=== PATIENT | male | born 1965 | race Caucasian/White ===

== ENCOUNTER 2025-10-05 09:39 | Emergency (ER) | payer BC, SELFPAY ==
[2025-10-05 09:44] VITALS: BP 202/114; PULSE 91; O2SAT 99
[2025-10-05 09:48] VITALS: BP 202/114; PULSE 85; RESP 18; TEMP 36.9; O2SAT 98; BMI 27.3
--- NOTE | 2025-10-05 09:48 | ECG_ITS ---
APPROVED REPORT Exam: Resting ECG HR:86 bpm ECG Measurements Heart Rate 86 AXES RI 154 P 60 QRSd 91 QRS -9 QT 361 T 42 QTc 404 Conclusion SINUS RHYTHM NORMAL ECG UNCONFIRMED REPORT Normal sinus rhythm. No STEMI Electronically signed by : JENNY RUIZ, 10/05/2025 15:25:02
--- OUTSIDE RECORDS SUMMARY | 2025-10-05 09:50 | XMS_ITS | Encounter Summary ---
Author Organization Healthcare Address [address] [place] [address] Care Team Providers Care Second Worker Name Role Phone Unavailable Primary Care Provider Unavailabl e Encounter Details Date Type Department Care Team (Late st Contact Info) Description 06/10/2023 Orders Only [facility] [address] [place] [id number] Carmelita Chao MD [address] [address] Social History Tobacco Use Types Packs/Day Years Used Date Smoking Tobacco: Never Assessed Sex and Gender Information Value Date Recorded Sex Assigned at Not on file Legal Sex Male 8:22 AM EDT Gender Identity Not on file Sexual Orientation Not on file documented as of this encounter Plan of Treatment Not on file documented as of this encounter Procedures Procedure Name Priority Date/Time Associated Diagnosis Comments CBC WITH AUTO DIFFERENTIAL Routine 06/10/2023 4:19 PM EDT documented in this encounter Results * (ABNORMAL) CBC and Differential (06/10/2023 4:19 PM EDT) External WBC 12.8(H) 3.8 - 10.8 10*3/uL 06/10/2023 4:35 PM EDT [facility] External Red Blood Cell (RBC) 5.68 4.20 - 5.80 10*6/uL 06/10/2023 4:35 PM EDT [facility] External Hemoglobin 17.2 14.0 - 18.0 g/dL 06/10/2023 4:35 PM EDT [facility] External Hematocrit 49.9 40.0 - 52.0 % 06/10/2023 4:35 PM EDT [facility] External MCV 88 80 - 100 fL 06/10/2023 4:35 PM EDT [facility] External MCH 30 26 - 35 pg 06/10/2023 4:35 PM EDT [facility] External MCHC 35 32 - 36 g/dL 06/10/2023 4:35 PM EDT [facility] External RDW 12.8 11.0 - 15.0 % 06/10/2023 4:35 PM EDT [facility] External Mean Platelet Volume 7.3 6.2 - 10.5 fL 06/10/2023 4:35 PM EDT [facility] External Platelets 332 130 - 400 10*3/uL 06/10/2023 4:35 PM EDT [facility] External Neutrophil# 8.8(H) 1.6 - 8.4 10*3/uL 06/10/2023 4:35 PM EDT [facility] External Lymphocyte# 2.8 0.4 - 5.1 10*3/uL 06/10/2023 4:35 PM EDT [facility] External Absolute Monocyte (Abs Lown[place]) 0.7 0.0 - 1.2 10*3/uL 06/10/2023 4:35 PM EDT [facility] External Eosinophils# 0.2 0.0 - 0.8 10*3/uL 06/10/2023 4:35 PM EDT [facility] External Baso# 0.2 0.0 - 0.3 10*3/uL 06/10/2023 4:35 PM EDT [facility] External Neutrophils % 68.7 42.0 - 78.0 % 06/10/2023 4:35 PM EDT [facility] External Lymphocyte % 21.8 11.0 - 47.0 % 06/10/2023 4:35 PM EDT [facility] External Monocyte % 5.7 0.0 - 11.0 % 06/10/2023 4:35 PM EDT [facility] External Eosinophil% 1.9 0.0 - 7.0 % 06/10/2023 4:35 PM EDT [facility] External Basophil % 1.9 0.0 - 3.0 % 06/10/2023 4:35 PM EDT [facility] External Nucleated RBC%-Auto 0.1 0.0 - 0.9 % 06/10/2023 4:35 PM EDT [facility] External Nucleated RBC Absolute 0.01 Not Estab. 10*3/uL 06/10/2023 4:35 PM EDT [facility] 06/10/2023 4:19 PM EDT 06/10/2023 4:30 PM EDT us Carmelita Chao MD LAB BLOOD ORDERABLES Final Re sult [facility] [address] [place] [address], documented in this encounter Visit Diagnoses Not on filedocumented in this encounter
--- OUTSIDE RECORDS SUMMARY | 2025-10-05 09:50 | XMS_ITS | Encounter Summary ---
Author Organization Healthcare Address [address] [place] [address] Care Team Providers Care Mails Supervisor Name Role Phone Unavailable Primary Care Provider Unavailabl e Encounter Details Date Type Department Care Team (Late st Contact Info) Description 06/28/2023 Orders Only [facility] [address] [place] [address] Carmelita Chao MD [address] [address] Social History Tobacco Use Types [...] Procedure Name Priority Date/Time Associated Diagnosis Comments ERYTHROPOIETIN (SO) Routine 06/28/2023 1:10 PM EDT documented in this encounter Results * Erythropoietin (06/28/2023 1:10 PM EDT) External Erythropoietin 4.3 2.6 - 18.5 mIU/mL 06/30/2023 3:21 PM EDT [facility] 06/28/2023 1:10 PM EDT 06/28/2023 8:08 PM EDT us Carmelita Chao MD LAB BLOOD ORDERABLES Final Re sult [facility] [address] [place] [address], documented in this encounter Visit Diagnoses Not on filedocumented in this encounter
--- OUTSIDE RECORDS SUMMARY | 2025-10-05 09:50 | XMS_ITS | Clinical Summary ---
Author Organization [facility] Address [address] [place] [address] Care Team Providers Care Gas Fitter Helper Name Role Phone Unavailable Primary Care Provider Unavailabl e Social History Tobacco Use Types Packs/Day Years Used Date Smoking Tobacco: Never Assessed Sex and Gender Information Value Date Recorded Sex Assigned at Not on file Legal Sex Male 8:22 AM EDT Gender Identity Not on file Sexual Orientation Not on file Plan of Treatment Health Maintenance Due Date Last Done Comments [facility]Y-Depression Screening 1965 [facility]-/Child/Adol SDOH Screenings 1965 UKY- SDOH Screenings 1983 UKY-Adult SDOH Screenings 1983 UKY-DTaP,Tdap,and Td Vaccine s (1 - Tdap) 1984 UKY-Hepatitis B Vaccines (1 of 3 - 19+ 3-dose series) 1984 CT Colonography 2010 Colonoscopy 2010 FIT-DNA 2010 FIT 2010 FOBT 2010 Sigmoidoscopy 2010 UKY-Colorectal Cancer Screening 2010 UKY-Pneumococcal Vaccine: 50 + Years (1 of 1 - PCV) 2015 UKY-Zoster Vaccines (1 of 2) 2015 JFF-IHGSL-64 Vaccine (1 - 20 25-26 season) 2025 UKY-Influenza Vaccine (#1) 2025 HPV Vaccines Aged Out No longer eligi ble based on patient's age to complete this topic UKY-HIB Vaccines Aged Out No longer e ligible based on patient's age to complete this topic UKY-Hepatitis A Vaccines Aged Out No longer eligible based on patient's age to complete this topic UKY-IPV Vaccines Aged Out No longer e ligible based on patient's age to complete this topic UKY-Rotavirus Vaccines Aged Out No lo nger eligible based on patient's age to complete this topic Insurance ANTH
--- NOTE | 2025-10-05 09:57 | XR_ITS ---
FINAL REPORT CLINICAL HISTORY: Chest pain, HTN x 1 week FINDINGS: A portable view of the chest was obtained. Cardiac and mediastinal silhouettes are within normal limits. The lungs are clear. There is no pleural effusion or pneumothorax. IMPRESSION: No acute process on this portable exam. Reviewed, Interpreted and Dictated by Sarah Harvey MD Transcribed by Mikki Katz Authenticated and [facility]
--- NOTE | 2025-10-05 09:58 | ED_ITS ---
Discharge Plan Disposition Patient Disposition: Home, Self-Care Referrals Follow up/Referrals: Dillon Alston MD [Staff Physician, Cardiology] - See instructions Provider,MD Sarah [Primary Care Provider, Medical] - See instructions Activity Restrictions/Add. Instructions Additional Instructions/Restrictions: Your blood pressure is elevated today and I do encourage you to follow-up with your primary care doctor this week or early next week to address this as you will likely need to be on additional medication to help control your blood pressure. Over the weekend, continue to monitor your blood pressure closely and keep a log of your blood pressure. Continue take your lisinopril as prescribed. If you develop any new or worsening symptoms, such as worsening chest pain, shortness of breath, blurry vision, abdominal pain, or if you become concerned for your help for any reason, return to the emergency department for evaluation Clinical Impressions Clinical Impression: Hypertension Print Language Print Language: Japanese Discharge ED Provider: Irineo De La Cruz Adult HPI General Chief complaint: Dizziness Stated complaint: High BP Time Seen by Provider: 10/05/25 09:46 Mode of Arrival: Ambulatory Source of Information: Patient Description of Symptoms (Recalled from ER Triage Doc. by RN): Pt presents for evaluation of high blood pressure x 1 week. Pt states his BP has been 200/100. Pt is compliant with his medications. States he takes lisinopril 40mg at night. Pt states he has a slight headache and slight dizziness. History of Present Illness HPI narrative: Johanny Lau is a 59y male with a history of hypertension on lisinopril 40 mg daily, tobacco use, diabetes mellitus who presents to the emergency department for complaints of high blood pressure. Patient states that on Wednesday of this past week (5 days ago), he had an episode of chest pain and pain in his left arm but states that it resolved. He started taking his blood pressure at that time and noted that it was elevated. He states that normally it is in the 130s systolic. He states that over the past week it has been more elevated than normal and last night was over 200 systolic. He states that he also feels like he had a short temper last night for an unknown reason. He states that his told him she is going to bed and he snapped and had to go for a drive for an hour. He states that last night he also had some pain down his left arm but denied any chest pain. He denies any current chest pain, shortness of breath, headache, blurry vision, abdominal pain or vomiting. He states that he has not seen his primary care doctor this week for these issues. Patient does not describe dizziness to me but states that he feels like he is in a brain fog. Related Data Allergies Allergy/AdvReac Type Severity Reaction Status Date / Time Penicillins Allergy Anaphylaxis Verified 10/05/25 10:41 [facility] Disclaimer: The information contained in this section may have been updated after the patient was seen, as this information can be updated by other users. Social History Smoking Status: Current every day smoker alcohol intake: never current occupational status: employed Travel in the last 8 weeks?: None ROS Obtained: Yes Systems reviewed as appropriate & no additional complaints except as documented Physical Exam General General appearance: alert and in no apparent distress Head Head exam: atraumatic Eye Eye exam: Present normal appearance ENT ENT exam: Present normal external ear exam Neck Neck exam: Present full ROM Chest Chest inspection: Present symmetric chest wall rise Respiratory Respiratory exam: Present normal lung sounds bilaterally; Absent respiratory distress Cardiovascular Cardiovascular exam: Present regular rate and normal rhythm Abdominal Exam Abdominal exam: Present soft; Absent tenderness or guarding exam: Present deferred Extremities Exam Extremities exam: Present normal inspection Back Exam Back exam: Present normal inspection Neurological Exam Neurological exam: Present alert and oriented X3 Psychiatric Psychiatric exam: Present normal affect Skin Skin exam: Present warm and dry Medical Decision Making Medical Records Screening: Per USPSTF and CDC recommendations, given the prevalence of disease in our region, it is our hospital?s policy to screen for HIV and viral Hepatitis for all patients aged 18 and over and those with ongoing risk factors. Raymundo Inquiry Pt receiving controlled substance: No Vital Signs: 10/05/25 09:44 10/05/25 09:48 10/05/25 10:35 Temperature 98.5 F Temperature Source Oral Pulse Rate 91 H 75 Pulse Rate [Right] 85 Respiratory Rate 18 18 Blood Pressure 202/114 H 176/99 H Blood Pressure [Right Arm] 202/114 H Blood Pressure Mean [Right Arm] 143 Blood Pressure Source [Right Arm] Automatic Cuff Blood Pressure Position [Right Arm] Sitting 02 Sat by Pulse Oximetry 99 98 98 Oxygen Delivery Method Room Air Room Air Room Air Lab Data Lab Results 10/05/25 09:50: WBC 13.1 H, RBC 5.88, Hgb 18.1 H, Hct 52.9 H, MCV 90.0, MCH 30.8, MCHC 34.2, RDW 12.2, Plt Count 317, MPV 9.4, Neut % (Auto) 78.1, Lymph % (Auto) 14.8, Cotton % (Auto) 5.4, Eos % (Auto) 1.1, Baso % (Auto) 0.4, Neut # (Auto) 10.2 H, Lymph # (Auto) 1.9, Cotton # (Auto) 0.7, Eos # (Auto) 0.2, Baso # (Auto) 0.1, Sodium 134 L, Potassium 3.9, Chloride 100, Carbon Dioxide 26, Anion Gap 11.9, BUN 11, Creatinine 0.70, Estimated Creat Clear 135, Estimated GFR 115, Est GFR ( Amer) 140, Glucose 247 H, Calcium 9.4, Total Bilirubin 0.9, AST 24, ALT 16, Alkaline Phosphatase 88, Troponin I < 0.01, NT-Pro-B Natriuret Pep 185 H, Total Protein 8.4 H, Albumin 4.8, Globulin 3.6 H, Albumin/Globulin Ratio 1.3 10/05/25 09:50 10/05/25 09:50 Orders (Tests/Meds): ORDERS Category Date Time Status CXR --portable [XR chest portable] Stat Exams 10/05/25 09:57 Completed BNP [NT Pro Brain Natriuretic Pep.] Stat Lab 10/05/25 09:50 Completed CBC w/Auto Diff [Complete Blood Count Auto Diff] Stat Lab 10/05/25 09:50 Completed CMP [Comprehensive Metabolic Panel] Stat Lab 10/05/25 09:50 Completed Troponin I Stat Lab 10/05/25 09:50 Completed ECG Data Tracing #1: I reviewed this ECG and interpreted as documented below: NSR. No ST elevation or depression. QTc normal at 404 HEART Score History (anamnesis): Slightly suspicious ECG: Normal Age: 45-65 years Risk factors: 1-2 risk factors Troponin: </= normal limit HEART Score: 2 Medical Decision Narrative: Johanny Lau is a 59y male with a history of hypertension on lisinopril 40 mg daily, tobacco use who presents to the emergency department for complaints of high blood pressure. Patient states that on Wednesday of this past week (5 days ago), he had an episode of chest pain and pain in his left arm but states that it resolved. He started taking his blood pressure at that time and noted that it was elevated. He states that normally it is in the 130s systolic. He states that over the past week it has been more elevated than normal and last night was over 200 systolic. He states that he also feels like he had a short temper last night for an unknown reason. He states that his told him she is going to bed and he snapped and had to go for a drive for an hour. He states that last night he also had some pain down his left arm but denied any chest pain. He denies any current chest pain, shortness of breath, headache, blurry vision, abdominal pain or vomiting. He states that he has not seen his primary care doctor this week for these issues. Patient does not describe dizziness to me but states that he feels like he is in a brain fog. On arrival, patient is hypertensive with blood pressure 202/114, heart rate within normal image, afebrile, maintaining appropriate oxygen saturation on room air. Physical exam, stated above, revealed nontoxic-appearing male in no distress. Cardiopulmonary exam without wheezing, rales or rhonchi. No murmurs or rubs. No focal neurological deficits. Abdomen is soft, nontender nondistended. Differential diagnosis includes, but is not limited to: Uncontrolled hypertension, hypertensive emergency, ACS. Low concern for intracranial pathology given patient's lack of headache or vision changes. Will obtain hematologic labs, troponin, EKG and chest x-ray. EKG was interpreted by me personally. Normal sinus rhythm. No ST elevation or depression. No T wave inversions. QTc normal at 404 Laboratory studies show leukocytosis without left shift, mildly elevated hemoglobin of 18.1, hematocrit 52.9. Mild hyponatremia 134 but electrolytes otherwise unremarkable nonactionable. No ABHIJIT. Glucose is mildly elevated at 247. Liver enzymes bilirubin within normal limits. Troponin less than 0.01. NT proBNP very mildly elevated at 185. Chest x-ray interpreted by me personally. No focal consolidation, no pneumothorax, no widened mediastinum, no enlargement of the cardiac silhouette. Unremarkable chest x-ray. See radiology report for details. On reassessment, patient's repeat blood pressure is 176/99. He has remained hemodynamically stable without any additional symptoms. I do feel that he is appropriate for discharge at this time with close follow with his primary care doctor, whom I encouraged him to call today to schedule an appointment. Will also refer him to cardiology given patient's intermittent chest pain/arm pain in the setting of tobacco use and blood pressure elevation. Heart score is 2. All questions were answered. Strict return precautions were given. He demonstrated understanding and was in agreement this plan. He was then discharged from the emergency department in stable condition. Critical Care Critical Care Time Critical Care Time: No
[2025-10-05 10:03] LABS: Hematocrit 52.9 % (42.0-52.0); Immature Granulocytes % 0.2 %; Mean Corpuscular HGB Conc 34.2 g/dL (31.8-35.4); Mean Corpuscular Hemoglobin 30.8 pg (27.0-31.2); Mean Corpuscular Volume 90.0 fl (80-94); Nucleated Red Blood Cells % 0 %; Platelet Count 317 K/mm3 (142-424); Red Blood Count 5.88 M/mm3 (4.60-6.20); Red Cell Distribution Width-SD 40.6 fL; White Blood Count 13.1 K/mm3 (4.8-10.8)
[2025-10-05 10:08] LABS: Alanine Aminotransferase 16 U/L (12-78); Albumin Level 4.8 g/dl (3.5-5.0); Albumin/Globulin Ratio 1.3 (1.1-1.8); Alkaline Phosphatase 88 U/L (38-126); Anion Gap 11.9 mEq/L (5-15); Aspartate Amino Transferase 24 U/L (17-59); Bilirubin,Total 0.9 mg/dl (0.2-1.3); Blood Urea Nitrogen 11 mg/dl (9-20); Calcium 9.4 mg/dl (8.4-10.2); Carbon Dioxide 26 mmol/L (22.0-30.0); Chloride 100 mmol/L (98-107); Creatinine Clearance Estimated 135 mL/min (50-200); Creatinine,Serum 0.70 mg/dl (0.66-1.25); Estimated Glomerular Filt Rate 115 ml/min (>60); GFR (African American) 140 ML/MIN (>60); Globulin 3.6 g/dL (1.3-3.2); Glucose 247 mg/dl (74-100); Potassium 3.9 mmoL/L (3.5-5.1); Sodium 134 mmol/L (136-145); Total Protein,Serum 8.4 g/dl (6.3-8.2)
--- NOTE | 2025-10-05 10:09 | PC.NURSE ---
portable chest xray at bedside
[2025-10-05 10:10] LABS: Hemoglobin 18.1 g/dL (14.1-18.0)
[2025-10-05 10:20] LABS: NT Pro Brain Natriuretic Pep. 185 pg/mL (0-125)
[2025-10-05 10:26] LABS: Troponin I < 0.01 ng/ml (0.00-0.034)
[2025-10-05 10:35] VITALS: BP 176/99; PULSE 75; RESP 18; O2SAT 98
[2025-10-05 11:24] VITALS: BP 176/99; PULSE 75; RESP 16; TEMP 36.9; O2SAT 98
== END 2025-10-05 11:25 | disposition home or self-care (01) ==
PROVIDERS: Emergency Provider Student in an Organized Health Care Education/Training Program
DX: I10 Essential (primary) hypertension (principal); E11.65 Type 2 diabetes mellitus with hyperglycemia; E87.1 Hypo-osmolality and hyponatremia; D72.829 Elevated white blood cell count, unspecified; F17.200 Nicotine dependence, unspecified, uncomplicated; Z79.899 Other long term (current) drug therapy
CPT/HCPCS: 71045; 80053; 83880; 84484; 85025; 93005; 99284

== ENCOUNTER 2025-10-30 14:38 | Outpatient (CLI) | payer BC, SELFPAY ==
--- OUTSIDE RECORDS SUMMARY | 2025-10-30 14:41 | XMS_ITS | Encounter Summary ---
Author Organization Healthcare Address [address] [place] [address] Care Team Providers Care Storage Garage Manager Name Role Phone Unavailable Primary Care Provider Unavailabl e Encounter Details Date Type Department Care Team (Late st Contact Info) Description 06/10/2023 Orders Only [facility] [address] [place] [phone] Carmelita Chao MD [address] [address] Social History Tobacco Use Types [...] - 10.8 10*3/uL 06/10/2023 4:35 PM EDT [facility] External Red Blood Cell (RBC) 5.68 4.20 - 5.80 10*6/uL 06/10/2023 4:35 PM EDT [facility] External Hemoglobin 17.2 14.0 - 18.0 g/dL 06/10/2023 4:35 PM EDT [facility] External Hematocrit 49.9 40.0 - 52.0 % 06/10/2023 4:35 PM EDT [facility] External MCV 88 80 - 100 fL 06/10/2023 4:35 PM EDT [facility] External MCH 30 26 - 35 pg 06/10/2023 4:35 PM EDT [facility] External MCHC 35 32 - 36 g/dL 06/10/2023 4:35 PM EDT [facility] External RDW 12.8 11.0 - 15.0 % 06/10/2023 4:35 PM EDT [facility] External Mean Platelet Volume 7.3 6.2 - 10.5 fL 06/10/2023 4:35 PM EDT [facility] External Platelets 332 130 - 400 10*3/uL 06/10/2023 4:35 PM EDT [facility] External Neutrophil# 8.8(H) 1.6 - 8.4 10*3/uL 06/10/2023 4:35 PM EDT [facility] External Lymphocyte# 2.8 0.4 - 5.1 10*3/uL 06/10/2023 4:35 PM EDT [facility] External Absolute Monocyte (Abs Menard) 0.7 0.0 - 1.2 10*3/uL 06/10/2023 4:35 PM EDT [facility] External Eosinophils# 0.2 0.0 - 0.8 10*3/uL 06/10/2023 4:35 PM EDT [facility] External Baso# 0.2 0.0 - 0.3 10*3/uL 06/10/2023 4:35 PM EDT [facility] External Neutrophils % 68.7 42.0 - 78.0 % 06/10/2023 4:35 PM EDT [facility] External Lymphocyte % 21.8 11.0 - 47.0 % 06/10/2023 4:35 PM EDT [facility] External Monocyte % 5.7 0.0 - 11.0 % 06/10/2023 4:35 PM EDT [facility] External Eosinophil% 1.9 0.0 - 7.0 % 06/10/2023 4:35 PM EDT [facility] External Basophil % 1.9 0.0 - 3.0 % 06/10/2023 4:35 PM EDT [facility] External Nucleated RBC%-Auto 0.1 0.0 - 0.9 % 06/10/2023 4:35 PM EDT [facility] External Nucleated RBC Absolute 0.01 Not Estab. 10*3/uL 06/10/2023 4:35 PM EDT [facility] 06/10/2023 4:19 PM EDT 06/10/2023 4:30 PM EDT us Carmelita Chao MD LAB BLOOD ORDERABLES Final Re sult [facility] [address] [place] [address], documented in this encounter Visit Diagnoses Not on filedocumented in this encounter
--- OUTSIDE RECORDS SUMMARY | 2025-10-30 14:41 | XMS_ITS | Encounter Summary ---
Author Organization Healthcare Address [address] [place] [address] Care Team Providers Care Burlap Worker Name Role Phone Unavailable Primary Care Provider Unavailabl e Encounter Details Date Type Department Care Team (Late st Contact Info) Description 06/28/2023 Orders Only [facility] [address] [place] [address] Carmelita Chao MD [address] [address] Social History Tobacco Use Types [...] Associated Diagnosis Comments ERYTHROPOIETIN (SO) Routine 06/28/2023 1 :10 PM EDT documented in this encounter Results * Erythropoietin (06/28/2023 1:10 PM EDT) External Erythropoietin 4.3 2.6 - 18.5 mIU/mL 06/30/2023 3:21 PM EDT [facility] 06/28/2023 1:10 PM EDT 06/28/2023 8:08 PM EDT us Carmelita Chao MD LAB BLOOD ORDERABLES Final Re sult [facility] [address] [place] [address], documented in this encounter Visit Diagnoses Not on filedocumented in this encounter
--- OUTSIDE RECORDS SUMMARY | 2025-10-30 14:41 | XMS_ITS | Clinical Summary ---
Author Organization [facility] Address [address] [place] [address] Care Team Providers Care Military Technology Manager Name Role Phone Unavailable Primary Care [...] 2015 UKY-Zoster Vaccines (1 of 2) 2015 [id number] Vaccine (1 - 20 25-26 season) 2025 UKY-Influenza Vaccine (#1) 2025 HPV Vaccines (No Doses Required) Completed UKY-HIB Vaccines Aged Out No longer e [...] patient's age to complete this topic Insurance ANDRY
--- NOTE | 2025-10-30 15:00 | CA_ITS ---
APPROVED REPORT EXAM: Comprehensive 2D, Doppler, and color-flow Echocardiogram Machine Packager: Sadie Meng, RT(R) Ht: 5 ft 9 in Wt: 191lbs BSA: 2.03 BP: 180/93 mmHg Indications: chest pain, smoker, HTN, DM, abn EKG 2D Dimensions LVEF (Garcia's) 59.00 % M: 52 - 72 LV Volume 117.10 mL M: 62 - 150 LV Volume Index 57.7 mL/m2 M: 34 - 74 LA Volume 43.10 mL LA Volume Index 21.23 mL/m2 (M/F) 16-34 EF AP4 62.80 % EF AP2 54.0 % EF BP 59.0 % GL Strain -17.3 % M-Mode Dimensions RVDd 3.65 cm (0.9-2.6) LA Diam 4.35 cm (1.9-4.0) LVDd 4.68 cm (3.5-5.7) LVDs 3.42 cm (3.5-5.7) IVSd 0.87 cm (0.6-1.1) PWd 0.95 cm (0.6-1.1) EF (Teich) 52.50% FS 26.90% EDV (Teich) 101.30 mL ESV (Teich) 48.10 mL LV Diastology E Decel Time 187 (160-240 msec) E/A Ratio 1.1 Mitral Valve MV E Max Scott. 96.0 (40-130 cm/s) MV A Velocity 89.0 (40-130 cm/s) E/A Ratio 1.08 MV PHT 55.0 ms Left Ventricle The left ventricle is normal size. Left ventricular systolic function is normal. The left ventricular ejection fraction is within the normal range. There is increased left ventricular wall thickness. There is normal LV segmental wall motion. The left ventricular diastolic function is normal. LVEF is 55% Right Ventricle The right ventricle is normal size. The right ventricular systolic function is normal. Atria The left atrium size is normal. The right atrium size is normal. There is no color Doppler evidence of interatrial shunt. Aortic Valve The aortic valve opens well. There is no hemodynamically significant aortic valvular stenosis. No aortic regurgitation is present. Mitral Valve The mitral valve is normal in structure. No evidence of mitral valve stenosis. Trace mitral regurgitation is present. Tricuspid Valve The tricuspid valve leaflets are thin and pliable. Trace tricuspid regurgitation. There is insufficient TR jet to estimate RVSP. Pulmonic Valve The pulmonary valve is grossly normal in structure. Trace pulmonic valve regurgitation is present. Great Vessels The aortic root is normal in size. IVC is normal in size and collapses >50% with inspiration. Pericardium There is no pericardial effusion. Other Information Study Quality: Fair Conclusion Normal biventricular systolic function. No significant valvular stenosis or regurgitation. Electronically signed by : Mounika Mandujano MD 11/09/2025 14:16:09
== END 2025-10-30 23:59 | disposition home or self-care (01) ==
LOC: RT 14:39
PROVIDERS: Visit Provider Nurse Practitioner
DX: E11.9 Type 2 diabetes mellitus without complications (principal); I10 Essential (primary) hypertension; R94.31 Abnormal electrocardiogram [ECG] [EKG]; R07.89 Other chest pain; F17.200 Nicotine dependence, unspecified, uncomplicated
CPT/HCPCS: 93306

== ENCOUNTER 2025-11-07 06:08 | Outpatient (CLI) | payer BC, SELFPAY ==
--- NOTE | 2025-11-07 | CA_ITS ---
APPROVED REPORT Exam: Exercise Treadmill Technologist: Miriam Harris Ht: 5 ft 9 in Wt: 191 lbs BSA: 2.03 m2 HR: 78 bpm BP: 180/90 mmHg Indications: Chest pain, hypertension, diabetes, abnormal ecg Stress Test Details Test: Exercise stress testing was performed using a Jorge protocol. HR Resting HR: 78 bpm Max Heart Rate (APMHR): 161.953163 bpm Max HR Achieved: 150 bpm Target HR (85% APMHR): 136.992942 bpm % of APMHR: 93.17 Recovery HR: 96 bpm BP Resting BP: 180.0/90.0 mmHg Max BP: 210.0/100.0 mmHg Recovery BP: 165.0/92.0 mmHg ECG Resting ECG: Normal sinus rhythm, ST-T wave abnormalities lead III only. Stress ECG Conclusion Patient exercised 6 minutes. Test stopped due to shortness of air and leg fatigue. METS 7.1 Symptoms: Shortness of air. No chest pain Arrhythmias/Ectopy: None ST-T Changes: < 1.[address] segment changes. Conclusion: Negative stress. Hypertensive response. See nuclear report for further information. Electronically signed by : Mounika Mandujano MD 11/09/2025 14:47:08
--- OUTSIDE RECORDS SUMMARY | 2025-11-07 06:11 | XMS_ITS | Data Portability ---
Author Organization [facility] GARY FloydS WAYNE CLOSED Address [address] [place] [address] Assessment Encounter Date Assessment Date Assessment LastModified by Organization Details LastModified Time 02/09/2017 02/09/2017 Mr. Lau has a persistent but overall mild leukocytosis with otherwise normal blood counts and only slight increase in absolute neutrophils on white count differential. Clinically there are no concerning symptoms and his exam is unremarkable today. I have recommended that we send peripheral blood for BCR A BL FISH testing and for flow cytometry to confirm no evidence of potential leukemia/lymphom a. However, I do believe this is less likely and the leukocytosis is most likely a benign issue. Assuming the above serologies are unremarkable, I would not recommend any further workup unless the white blood cells, or other blood counts, were to change significantly. At that point we would need to consider further workup to include potential bone marrow biopsy. He voiced understanding and agreement with the above and I will contact him with today's serologies and definitive recommendations. [email or web address] Not available 02/09/2017 13:07:57 Plan of Treatment Reminders Order Date Submit Date Provider Last Modified By Organization Details Last Modified Time Details Appointments None record ed. Lab None record ed. Referral None record ed. Procedures None record ed. Surgeries None record ed. Imaging None record ed. Medication Orders None record ed. Patient TargetsNo targets recorded. Patient InstructionsNo instructions recorded. Reason for Referral None Reported. Results Created Date Observation Date Name Description Value Unit Range Abnormal Flag Note LastModifiedBy Organization Detail LastModifiedTime 02/10/20 17 02/16/2017 chron ic myelo genou s leuke дмитрий (cml) profi le, bcr/a bl1, FISH, blood /tiss ue fish, cml/all, bcr/abl SEE NOTE normal Speci men Type: Perip heral Blood Clini amy Indic ation : FISH study for oncol ogy RESUL T : NEGAT ROS FISH RESUL T FOR BCR-A BL1 FUSIO N, t(9;2 2). INTER PRETA TION : This fluor escen ce in-si tu hybri dizat ion (FISH ) assay , using probe s for BCR-A BL1 fusio n (Abbo tt Molec ulil) , showe elen bhandari rn of hybri dizat ion in the inter phase cells exami lyle. Corre latio n with a chrom osome study as well as other clini amy and labor atory findi ngs is indic ated. If a low level of BCR-A BL1 posit ros cells or minim al resid ual disea se is suspe cted, rach sis by RT-PC R shoul d also be consi dered . Pleas e expec t the resul ts of any other concu rrent study in a separ ate repor t. NOMEN CLATU RE : nuc shefali(A BL1,B CR)x2 (200) ASSAY INFOR MATIO N : Metho d : FISH Total Cells : 200 Image s Captu red : 2 The BCR probe spans the commo n break point s of both the major and minor BCR. This test will not detec t other abnor malit ies that may have clini amy signi fican ce. The cutof f value for BCR-A BL1 fusio n is 1%. This test was devel oped and its rach tical perfo rmanc e oh cteri stics have been deter mined by [facility] [place]. It has not been clear ed or appro heather by the U.S. Food and Drug Admin istra tion. This assay has been valid ated pursu ant to the CLIA regul ation s and is used for clini amy purpo ses. Labor atory resul ts revie wed and Clini amy Inter preta tion provi ded by Shani landry MD, FACMG TEST PERFO RMED AT: [facility] [address] [place] [phone] REYNA CORTES MD PHD Not Available [facility] [address] [place] [address], [phone], 02/16/2017 13:24:30 06/10/20 23 06/10/2023 COMPL ETE BLOOD COUNT white blood cells 12.8 10*3/ uL 3.8-10 .8 high Not Available [facility] [address] [place] [address], [phone], 06/10/2023 16:35:05 06/10/20 23 06/10/2023 COMPL ETE BLOOD COUNT red blood cells 5.68 10*6/ uL 4.20-5 .80 normal Not Available [facility] [address] [place] [address], [phone], 06/10/2023 16:35:05 06/10/20 23 06/10/2023 COMPL ETE BLOOD COUNT hemoglobin 17.2 g/dL 14.0-1 8.0 normal Not Available [facility] [address] [place] [address], [phone], 06/10/2023 16:35:05 06/10/20 23 06/10/2023 COMPL ETE BLOOD COUNT hematocrit 49.9 % 40.0-5 2.0 normal Not Available [facility] [address] [place] [address], [phone], 06/10/2023 16:35:05 06/10/20 23 06/10/2023 COMPL ETE BLOOD COUNT MCV 88 fL 80-100 normal Not Available [facility] [address] [place] [address], [phone], 06/10/2023 16:35:05 06/10/20 23 06/10/2023 COMPL ETE BLOOD COUNT MCH 30 pg 26-35 normal Not Available [facility] [address] [place] [address], [id number], 06/10/2023 16:35:05 06/10/20 23 06/10/2023 COMPL ETE BLOOD COUNT MCHC 35 g/dL 32-36 normal Not Available [facility] [address] [place] [address], [id number], 06/10/2023 16:35:05 06/10/20 23 06/10/2023 COMPL ETE BLOOD COUNT RDW 12.8 % 11.0-1 5.0 normal Not Available [facility] [address] [place] [address], [phone], 06/10/2023 16:35:05 06/10/20 23 06/10/2023 COMPL ETE BLOOD COUNT MPV 7.3 fL 6.2-10 .5 normal Not Available [facility] [address] [place] [address], [phone], 06/10/2023 16:35:05 06/10/20 23 06/10/2023 COMPL ETE BLOOD COUNT platelet count 332 10*3/ uL 130-40 0 normal Not Available [facility] [address] [place] [address], [phone], 06/10/2023 16:35:05 06/10/20 23 06/10/2023 COMPL ETE BLOOD COUNT neutrophil,a bsolute 8.8 10*3/ uL 1.6-8. 4 high Not Available [facility] [address] [place] [address], [phone], 06/10/2023 16:35:05 06/10/20 23 06/10/2023 COMPL ETE BLOOD COUNT lymphocyte,a bsolute 2.8 10*3/ uL 0.4-5. 1 normal Not Available [facility] [address] [place] [address], [phone], 06/10/2023 16:35:05 06/10/20 23 06/10/2023 COMPL ETE BLOOD COUNT monocyte,abs olute 0.7 10*3/ uL 0.0-1. 2 normal Not Available [facility] [address] [place] [address], [phone], 06/10/2023 16:35:05 06/10/20 23 06/10/2023 COMPL ETE BLOOD COUNT eosinophil,a bsolute 0.2 10*3/ uL 0.0-0. 8 normal Not Available [facility] [address] [place] [address], [id number], 06/10/2023 16:35:05 06/10/20 23 06/10/2023 COMPL ETE BLOOD COUNT basophil,abs olute 0.2 10*3/ uL 0.0-0. 3 normal Not Available [facility] [address] [place] [address], [phone], 06/10/2023 16:35:05 06/10/20 23 06/10/2023 COMPL ETE BLOOD COUNT % neutrophils 68.7 % 42.0-7 8.0 normal Not Available [facility] [address] [place] [address], [id number], 06/10/2023 16:35:05 06/10/20 23 06/10/2023 COMPL ETE BLOOD COUNT % lymphocytes 21.8 % 11.0-4 7.0 normal Not Available [facility] [address] [place] [address], [id number], 06/10/2023 16:35:05 06/10/20 23 06/10/2023 COMPL ETE BLOOD COUNT % monocytes 5.7 % 0.0-11 .0 normal Not Available [facility] [address] [place] [address], [phone], 06/10/2023 16:35:05 06/10/20 23 06/10/2023 COMPL ETE BLOOD COUNT % eosinophils 1.9 % 0.0-7. 0 normal Not Available [facility] [address] [place] [address], [phone], 06/10/2023 16:35:05 06/10/20 23 06/10/2023 COMPL ETE BLOOD COUNT % basophils 1.9 % 0.0-3. 0 normal Not Available [facility] [address] [place] [address], [id number], 06/10/2023 16:35:05 06/10/20 23 06/10/2023 COMPL ETE BLOOD COUNT nucleated red cells 0.1 % 0.0-0. 9 normal Not Available [facility] [address] [place] [address], [id number], 06/10/2023 16:35:05 06/10/20 23 06/10/2023 COMPL ETE BLOOD COUNT nucleated RBCs, absolute 0.01 10*3/ uL not estab. normal Not Available [facility] [address] [place] [address], [id number], 06/10/2023 16:35:05 06/28/20 23 06/30/2023 ERYTH ROPOI ETIN erythropoiet in 4.3 mIU/m L 2.6-18 .5 normal Not Available [facility] [address] [place] [address], [id number], 06/30/2023 15:21:39 07/15/20 23 07/26/2023 JAK2 MUTAT ION RACH SIS jak2 mutation (v617f) NOT DETECT ED not detect ed normal Not Available [facility] [address] [place] [address], [id number], 07/26/2023 14:41:11 07/15/2007/26/2023 JAK2 MUTAT ION RACH SIS interpretati on SEE NOTE normal A JAK2 V617F mutat ion is not detec griselda. This data was revie wed and inter prete d by Rose interiano Ma, PhD. HCLD( ABB) Not Available [facility] [address] [place] [address], [phone], 07/26/2023 14:41:11 07/15/20 23 07/26/2023 JAK2 MUTAT ION RACH SIS assay details SEE NOTE normal This PCR-b ased advan terrance seque ncing assay inter rogat es DNA from leuko cytes for the prese nce of mutat ions in codon 617 of JAK2. The sensi tivit y of mutat ion detec tion is 5%. Alter ation s outsi de of the teste d areas of this gene will not be detec griselda. Synon ymous or known non-s ynony mous polym orphi c jiménez es (SNPs ) are not repor griselda. JAK2 V617F mutat ion is assoc iated with myelo proli ferat ros neopl asms (MPNs ), inclu ding polyc ythem ia vera (PV), essen tial throm bocyt hemia (ET) and prima ry myelo fibro sis (PMF) , and a small subse t of other myelo id neopl asms. Incre asing allel e burde n of JAK2 V617F in MPNs has been shown in a numbe r of studi es to be assoc iated with incre ased sympt oms inclu ding pruri tis, splen omega ly, and leuko cytos is. Resul ts of this assay shoul d be corre lated with morph ology and other labor atory testi ng for final diagn osis and class ifica tion. If this test is negat ros, addit ional testi ng that may be usefu l for torie p of MPNs, depen ding on prese nting hemat ologi c featu res, inclu christian BCR-A BL1 rearr angem ent (test [place] [address] [place] [address] X) or mutat ional rach sis of CALR (ET/P MF, 29964 ), JAK2 exon 12 (PV, 69338 ), MPL (ET/P MF, 52231 ) or CSF3R (licensed mental health professional mary jo neutr ophil ic leuke дмитрий, [address] ). Resid ual mater ial from this sampl e may be used excep t for BCR-A BL1 testi ng; call lab to add. DNA was align ed to GRCh3 7(hg1 9) for rach sis and trans cript ID [id number] was used as refer ence for JAK2 seque nce. For addit ional infor garrett leblanc refer to http: //tyson Ware stDia gnost ics.c om/fa q/FAQ 211 (This link is being provi ded for infor otto nal/e ducat ional purpo ses only. ) This test was devel oped and its rach tical perfo rmanc e oh cteri stics have been deter mined by [facility] . It has not been clear ed or appro heather by FDA. This assay has been valid ated pursu ant to the CLIA regul ation s and is used for clini amy purpo ses. Not Available [facility] [address] [place], [phone], 07/26/2023 14:41:11 Result Notes None recorded. Medical Equipment None Reported. Medications Name Sig Start Date Stop Date Status Note LastModified by Organization Details LastModified Time metformin 500 mg tablet Take 1 tablet twice a day by oral route. active Not Available Not Available No t Available lisinopril 20 mg tablet Take 1 tablet every day by oral route. active Not Available Not Available No t Available Vitals Date Recorded Body weight Body height Body mass index (BMI) Heart rate Body temperature Systolic And Diastolic Provider Name and Address Organization Details Last Updated DateTime 7 39709.3 6 g 177.8 cm 30.8 kg/m2 106 /min 98.2 [degF] 141/94 mm[Hg] [facility] 7 12:30:37 Date Recorded Pain severity - 0-10 verbal numeric rating [Score] - Reported Provider Name and Address Organization Details Last Updated DateTime 02/09/2017 0 Not Available [facility] 8 10:16:52 Social History None recorded. Functional Status None recorded. Mental Status None recorded. Family History Nothing Reported Notes:family history of moth er having kidney disease family history of father having prostate, kidney, bladder cancer Medical History Condition Response Diabetes Y Hypertension Y Blood disorders Y Past Encounters Encounter ID Performer Location Encounter Start Date Encounter Closed Date Diagnosis/Indication Diagnosis SNOMED-CT Code Diagnosis ICD10 Code Diagnosis IMO Codes Diagnosis Note [id number] AYAAN WHITAKER MD [facility] [address] [place] [address] 02/09/2017 11:23:50 02/09/2017 13:10:33 Leukocytosis 634011044 D72.829 [id number] GISELLE ALVAREZ MD H[facility] [address] [place] [address] 06/10/2023 15:06:53 06/18/2023 16:15:41 Health Concerns Section Related Observation LastModified by Organization Detai ls LastModified Time None Recorded Concern Status LastModified by Organization Details LastModified Time None Recorded Advance Directives Directive None Recorded Payers Insurance Date Sequence Insurance Name Policy Number Policy Witt Covered Member ID Witt Member ID Guarantor Name 07/27/2023 1 [place] [id number] 1 Johanny Lau [id number] Johanny Lau Notes Date Note Type Note Provider Name and Address Organization Details Recorded Time 02/09/2017 text/html Mr. Johanny Lau is a very pleasant 51-year-old male who is sent in consultation by Cheyenne Becerra PA-C for leukocytosis. Reviewing outside records reveals a white count slightly high at 11.2 in September Of last year. More recently, CBC on the of last month showed a white count of 17.8. Repeat blood counts on the of last month showed a white count of 13.3 and again on the last month showed white count of 15.6. On all of these blood counts hemoglobin and platelet count were normal white count differential showed some increase in absolute neutrophils though percentage of the different types of white blood cells were completely normal. CMP was drawn on more than one occasion which showed only slightly elevated alkaline phosphatase at times but otherwise unremarkable. He has had no issues with infection and no new medications. There has been no lymphadenopathy, night sweats, fevers or weight loss. AYAAN WHITAKER MD [address] [place] [address], [phone], [facility] 02/09/2017 13:09:35
--- OUTSIDE RECORDS SUMMARY | 2025-11-07 06:11 | XMS_ITS | Data Portability ---
Author Organization [facility], [facility] Address [address] [place] [address] Care Team Providers Care Investigative Writer Name Role Phone [facility] Primary Care Provider [facility] Referring Provider [phone] Assessment Encounter Date Assessment Date Assessment LastModified by Organization Details LastModified Time 06/10/2023 06/10/2023 This is a 57-year-old male with; 1. Recent laboratory studies consistent with leukocytosis. Given the fact that the patient has had adequate workup with similar numbers more than 6 years ago, I would probably suggest that this probably relates to underlying smoking and an inflammatory issue. Again, he has had a flow cytometry that ruled any lymphomatous issue out and BCR-ABL would rule out a CML. 2. Polycythemia. His red cell count has increased over the last 6 years and most likely it is related to a combination of probably hypoxia associated with smoking versus sleep apnea versus other. I discussed with the patient, I think it is reasonable to go ahead and check an erythropoietin level. If his EPO level is high, then I think we just contribute to the secondary polycythemia. If it is normal or low, we would consider a JAK2 gene testing to rule out the possibility of polycythemia vera. It could be evolving that could also cause a slightly elevated monotypic white cell count as well, although at this point, given his history of smoking, I think it is probably low likelihood, but we have discussed that with the patient today. We will get the EPO level and if it is normal or low, we will go ahead and do JAK2 gene testing as well. [email or web address] Not available 06/11/2023 04:23:30 Plan of Treatment Reminders Order Date Submit [...] Abnormal Flag Note LastModifiedBy Organization Detail LastModifiedTime 06/10/2006/10/2023 COMPL ETE BLOOD COUNT white blood cells 12.8 10*3/ uL 3.8-10 .8 high Not Available [facility] [address] [place] [address], [phone], 06/10/2023 16:35:05 06/10/20 23 06/10/2023 COMPL ETE BLOOD COUNT red blood cells 5.68 10*6/ uL 4.20-5 .80 normal Not Available [facility] [address] [place] [address], [phone], 06/10/2023 16:35:05 06/10/20 23 06/10/2023 COMPL ETE BLOOD COUNT hemoglobin 17.2 g/dL 14.0-1 8.0 normal Not Available [facility] [address] [place] [address], [id number], 06/10/2023 16:35:05 06/10/20 23 06/10/2023 COMPL ETE BLOOD COUNT hematocrit 49.9 % 40.0-5 2.0 normal Not Available [facility] [address] [place] [address], [id number], 06/10/2023 16:35:05 06/10/20 23 06/10/2023 COMPL ETE BLOOD COUNT MCV 88 fL 80-100 normal Not Available [facility] [address] [place] [address], [phone], 06/10/2023 16:35:05 06/10/20 23 06/10/2023 COMPL ETE BLOOD COUNT MCH 30 pg 26-35 normal Not Available [facility] [address] [place] [address], [id number], 06/10/2023 16:35:05 06/10/20 23 06/10/2023 COMPL ETE BLOOD COUNT MCHC 35 g/dL 32-36 normal Not Available [facility] [address] [place] [address], [address], 06/10/2023 16:35:05 06/10/20 23 06/10/2023 COMPL ETE BLOOD COUNT RDW 12.8 % 11.0-1 5.0 normal Not Available [facility] [address] [place] [address], [address], 06/10/2023 16:35:05 06/10/20 23 06/10/2023 COMPL ETE BLOOD COUNT MPV 7.3 fL 6.2-10 .5 normal Not Available [facility] [address] [place] [address], [id number], 06/10/2023 16:35:05 06/10/20 23 06/10/2023 COMPL ETE BLOOD COUNT platelet count 332 10*3/ uL 130-40 0 normal Not Available [facility] [address] [place] [address], [address], 06/10/2023 16:35:05 06/10/20 23 06/10/2023 COMPL ETE BLOOD COUNT neutrophil,a bsolute 8.8 10*3/ uL 1.6-8. 4 high Not Available [facility] [address] [place] [address], [id number], 06/10/2023 16:35:05 06/10/20 23 06/10/2023 COMPL ETE BLOOD COUNT lymphocyte,a bsolute 2.8 10*3/ uL 0.4-5. 1 normal Not Available [facility] [address] [place] [address], [phone], 06/10/2023 16:35:05 06/10/20 23 06/10/2023 COMPL ETE BLOOD COUNT monocyte,abs olute 0.7 10*3/ uL 0.0-1. 2 normal Not Available [facility] [address] [place] [address], [address], 06/10/2023 16:35:05 06/10/20 23 06/10/2023 COMPL ETE BLOOD COUNT eosinophil,a bsolute 0.2 10*3/ uL 0.0-0. 8 normal Not Available [facility] [address] [place] [address], [address], 06/10/2023 16:35:05 06/10/20 23 06/10/2023 COMPL ETE BLOOD COUNT basophil,abs olute 0.2 10*3/ uL 0.0-0. 3 normal Not Available [facility] [address] [place] [address], [address], 06/10/2023 16:35:05 06/10/20 23 06/10/2023 COMPL ETE BLOOD COUNT % neutrophils 68.7 % 42.0-7 8.0 normal Not Available [facility] [address] [place] [address], [phone], 06/10/2023 16:35:05 06/10/20 23 06/10/2023 COMPL ETE BLOOD COUNT % lymphocytes 21.8 % 11.0-4 7.0 normal Not Available [facility] [address] [place] [address], [address], 06/10/2023 16:35:05 06/10/20 23 06/10/2023 COMPL ETE BLOOD COUNT % monocytes 5.7 % 0.0-11 .0 normal Not Available [facility] [address] [place] [address], [address], 06/10/2023 16:35:05 06/10/20 23 06/10/2023 COMPL ETE BLOOD COUNT % eosinophils 1.9 % 0.0-7. 0 normal Not Available [facility] [address] [place] [address], [address], 06/10/2023 16:35:05 06/10/20 23 06/10/2023 COMPL ETE BLOOD COUNT % basophils 1.9 % 0.0-3. 0 normal Not Available [facility] [address] [place] [address], [address], 06/10/2023 16:35:05 06/10/20 23 06/10/2023 COMPL ETE BLOOD COUNT nucleated red cells 0.1 % 0.0-0. 9 normal Not Available [facility] [address] [place] [address], [address], 06/10/2023 16:35:05 06/10/20 23 06/10/2023 COMPL ETE BLOOD COUNT nucleated RBCs, absolute 0.01 10*3/ uL not estab. normal Not Available [facility] [address] [place] [address], [address], 06/10/2023 16:35:05 06/28/20 23 06/30/2023 ERYTH ROPOI ETIN erythropoiet in 4.3 mIU/m L 2.6-18 .5 normal Not Available [facility] [address] [place] [address], [address], 06/30/2023 15:21:39 07/15/20 23 07/26/2023 JAK2 MUTAT ION RACH SIS jak2 mutation ([id number]) NOT DETECT ED not detect ed normal Not Available [facility] [address] [place] [address], [id number], 07/26/2023 14:41:12 07/15/20 23 07/26/2023 JAK2 MUTAT ION RACH SIS interpretati on SEE NOTE normal A JAK2 V617F mutat ion is not detec griselda. This data was revie bao and ann cormier d by Rose interiano Ma, PhD. HCLD( ABB) Not Available [facility] [address] [place] [address], [phone], 07/26/2023 14:41:12 09/07/07/26/2023 JAK2 MUTAT ION RACH SIS assay details [...] is assoc iated with myelo proli ferat puja neopl asms (MPNs ), inclu ding polyc [...] ifica tion. If this test is negat puja, addit ional testi ng that may be usefu l for torie p of MPNs, depen ding on prese nting hemat ologi c featu res, inclu christian BCR-A BL1 rearr angem ent ([place] [address] [place] [address] X) or mutat ional rach sis of CALR (ET/P MF, 23595 ), JAK2 exon 12 (PV, 00689 ), MPL (ET/P MF, 79351 ) or CSF3R (gasoline plant operator mary jo neutr ophil ic leuke дмитрий, 93476 ). Resid ual mater ial from this sampl e may be used excep t for BCR-A BL1 testi ng; call lab to add. DNA was align ed to GRCh3 7(hg1 9) for rach sis and trans cript ID [id number] was used as refer ence for JAK2 seque nce. For addit ional infor garrett leblanc e refer to http: //[facility] messi Ware [employer].c om/fa q/FAQ 211 (This link is being provi ded for infor otto nal/e ducat ional purpo ses only. ) This test was devel oped and its rach tical perfo rmanc e oh cteri stics have been deter mined by [facility] [employer] . It has not been clear ed or appro heather by FDA. This assay has been valid ated pursu ant to the CLIA regul ation s and is used for clini amy purpo ses. Not Available [facility] [address] [place] [address], [address], 07/26/2023 14:41:12 Result Notes None recorded. Problems Name Problem SNOMED Code Status Onset Date Resolution Date Notes Provider Name and Address Organization Details Recorded Time Erythrocytosis 063117635 Active 2022 GISELLE ALVAREZ MD [address] [place] [address], [phone], [facility] 3 16:06:02 Leukocytosis 140082378 Active 2022 GISELLE ALVAREZ MD [address] [place] [address], [address], [facility] 3 16:06:03 Problem Notes None recorded. Medical Equipment None Reported. Allergies Allergen ID Allergen Name Allergen Category Reaction Reaction Severity Criticality Documentation Date Start Date Code Code System Note Provider Name and Address Organization Details Recorded Time 401644 Product containin g penicilli n (product) medicatio n Not available Not available Not available 06/10/2023 14464 8001 SNOMED Nova Carrillo [facility] 3 15:15:08 Medications Name Sig Start Date Stop Date Status Note LastModified by Organization Details LastModified Time aspirin 325 mg tablet Take 1 tablet every day by oral route. active Not Available Not Available No t Available Tubersol 5 tub. unit/0.1 mL intradermal injection solution Inject by intradermal route. active Not Available Not Available No t Available glimepiride 4 mg tablet Take 1 tablet every day by oral route. active Not Available Not Available No t Available pioglitazone 30 mg tablet Take 1 tablet every day by oral route. active Not Available Not Available No t Available lisinopril 40 mg tablet Take 1 tablet every day by oral route. active Not Available Not Available No t Available fenofibrate 160 mg tablet Take 1 tablet every day by oral route. active Not Available Not Available No t Available ibuprofen active Not Available Not Lizz ilable Not Available Tylenol 325 mg capsule Take by oral route. active Not Available Not Available Not Available Vitals Date Recorded Body weight Body mass index (BMI) Body height Body temperature Heart rate Oxygen saturation Systolic And Diastolic Provider Name and Address Organization Details Last Updated DateTime 3 99921.1 5 g 30.6 kg/m2 176.53 cm 98 [degF] 89 /min 97 % 160/90 mm[Hg] Nova [facility] 15:22:26 Social History Question Answer Notes LastModified by Organizat ion Details LastModified Time Tobacco Smoking Status Current Every Day Smoker [facility] 06/10/2023 15:18:05 How Many Children Do You Have? 3 [email or web address] Information not available 06/10/2023 What Is Your Relationship Status? [email or web address] Information not available 06/10/2023 How Much Tobacco Do You Smoke? 1 PPW [email or web address] Information not available 06/10/2023 Sex: Unknown Functional Status None recorded. Mental Status None recorded. Family History Relationship Description Onset Age of this Age Resolved Age Notes LastModified by Organization Details LastModified Time Father Diabetes mellitus [email or web address] Not available 06/10 15:16:21 Mother Diabetes mellitus [email or web address] Not available 06/10 15:16:21 Mother Kidney disease [email or web address] Not available 06/10 15:16:47 Brother Diabetes mellitus [email or web address] Not available 06/10 15:16:21 Brother Diabetes mellitus [email or web address] Not available 06/10 15:16:21 Brother Malignant neoplastic disease [email or web address] Not available 06/10 15:16:32 Medical History Condition Response Diabetes Y Hypertension Y High Cholesterol Y Past Encounters Encounter ID Performer Location Encounter Start Date Encounter Closed Date Diagnosis/Indication Diagnosis SNOMED-CT Code Diagnosis ICD10 Code Diagnosis IMO Codes Diagnosis Note [id number] AYAAN MANLEY MD H[facility] [address] [place] [address] 02/09/2017 11:23:50 02/09/2017 13:10:33 [id number] GISELLE ALVAREZ MD H[facility] [address] [place] [address] 06/10/2023 15:06:53 06/18/2023 16:15:41 Leukocytosis 951485516 D72.829 Erythrocytosis 170942026 D75.1 Health Concerns Section Related Observation LastModified by Organization Detai ls LastModified Time None Recorded Concern Status LastModified by Organization Details LastModified Time None Recorded Advance Directives Directive None Recorded Payers Insurance Date Sequence Insurance Name Policy Number Policy Witt Covered Member ID Witt Member ID Guarantor Name 07/27/2023 1 [place] [facility] [id number] 1 Johanny Lau [id number] Johanny Lau Notes Date Note Type Note Provider Name and Address Organization Details Recorded Time 06/10/2023 text/html HPIReported b y PatientVisit DetailsFor advanced directives / biobank authorizations, patient reportsadvanced directives? no. For discharge, patient reportsdischarge disposition stableanddischarge mode ambulatory.Distress ScreeningFor emotional problems, patient reportsdepression,sadne ss, andworry(anger). For physical problems, patient reportsfatigue,sleep issues, andtingling in hands and feet. For distress screening, patient reportsdistress level 10. For practical problems, patient reportsno practical problems. For family problems, patient reportsno family problems. For spiritual/mormon, patient reportsspiritual/religi ous problems? no. The patient is a 57-year-old male with a prior history of smoking, recently had laboratory testing done. Had a white blood cell count of around 16,000, hemoglobin is also elevated as well. In discussing with the patient, he says that he was seen a number of years ago. I have gone back and actually reviewed. He was seen previously in the [facility] by Dr. Ayaan Manley dating back to March 2017. At that time, he had an elevated white count of around 15.6 with a hemoglobin of around 16.7 and a platelet count in the normal range. Dr. Manley had appropriately ordered flow cytometry to rule out any abnormal cells and a FISH testing for BCR-ABL to rule out the possibility of CML. The patient's overall white count done recently is fairly consistent previously, but his hemoglobin is somewhat elevated as well. In discussing with the patient, he says that he continues to smoke and had been taking care of his who apparently has been of breast cancer over the past year and certainly very difficult process from him to go through. Clinically otherwise, he states he is doing well and has no major complaints other than sleep. GISELLE ALVAREZ MD [address] [place] [address], [place], [address], [facility] 06/11/2023 08:20:41
--- NOTE | 2025-11-07 06:30 | NM_ITS ---
APPROVED REPORT Exam: Nuclear Stress Test Indication: Abnormal EKG, HTN, DM, Tobacco use, Family history Patient Location: Outpatient Stress Tech: Miriam Harris [place] Tech:Veronica Walker, ARRT, RT (R)(N) Ht: 5 ft 9 in Wt: 190 lbs HR: 72 bpm BP: 180/90 mmHg BSA: 2.02 m2 TID: 0.98 BMI: 28.0 History: Abnormal EKG, HTN, DM, Tobacco use, Family history Procedure: Patient exercised on Jorge protocol 6:00 minutes and sec, resting heart rate 72 bpm, resting blood pressure 180/90 mmHg, with exercise maximum heart rate achived was 150 bpm which is 93 % of the maximum predicted heart rate and blood pressure was 210/100 mmHg. Test was stopped due to SOB. Patient denied any complaint of chest pain. Patient has normal exercise capacity, achieved 7.1 METs of workload on treadmill, the blood pressure response to exercise was exaggerated. Cardiac Stress and Resting SPECT Images: Cardiac Stress and Resting SPECT images were obtained using technetium 99m Myoview 31.7 mCi stress and 10.45 mCi at rest. Resting and stress imaging in supine and prone positions demonstrate a medium-sized, moderate, partially reversible perfusion defect in the inferior LV wall. Gated imaging demonstrates normal global LV systolic function. LVEF is calculated at 56%. Conclusion: Medium-sized, moderate, partially reversible perfusion defect in the inferior LV wall. Findings are suggestive of partial reversible ischemia. Gated imaging demonstrates normal global LV systolic function. LVEF is calculated at 56%. Of note, the patient had a hypertensive BP response to exercise. BP control is recommended. Electronically signed by : Mounika Mandujano MD 11/09/2025 14:32:09
[2025-11-07] MEDS: SODIUM CHLORIDE 0.9% 10ML SYR (RAD ONLY) 10 ML IV ×2 (08:20)
[2025-11-07] MEDS: ISOTOPE MYOVIEW (PER STUDY) 1 DOSE IV (08:20)
== END 2025-11-07 23:59 | disposition home or self-care (01) ==
LOC: RAD 06:10
PROVIDERS: Visit Provider Nurse Practitioner
DX: I10 Essential (primary) hypertension (principal); R94.39 Abnormal result of other cardiovascular function study; R07.89 Other chest pain; R94.31 Abnormal electrocardiogram [ECG] [EKG]; E11.9 Type 2 diabetes mellitus without complications; Z72.0 Tobacco use
CPT/HCPCS: 78452; 93017; 93018; A9502